=== PATIENT | female | born 1970 | race Caucasian/White ===

== ENCOUNTER 2017-06-30 11:26 | Emergency (ER) | payer BC ==
[2017-06-30 11:35] VITALS: TEMP 97.7
[2017-06-30] MEDS ORDERED: KETOROLAC 60 MG/2 ML VIAL IM STA (12:19)
--- NOTE | 2017-06-30 12:20 | ED ---
General Adult HPI - General Chief complaint: Extremity Injury, Upper Stated complaint: LEFT SHOULDER PAIN, HAND SWELLING Time Seen by Provider: 06/30/17 11:30 Source: patient, RN notes reviewed Mode of arrival: ambulatory Limitations: no limitations - History of Present Illness Initial comments: This is a 46-year-old female presents emergency Department complaining of left shoulder pain. Patient states his been ongoing for about a month. Patient states anytime she abducts her shoulder increases the pain. Patient states also asked or rotation appears to increase the pain. Patient states she's been doing quite a bit of moving and lifting at work and she thinks this may have exacerbated the shoulder. Patient denies any blunt or direct trauma to the shoulder. Patient denies any elbow wrist or hand pain. Patient denies any swelling or redness. Patient denies any tingling or numbness - Related Data Home Medications Medication Instructions Recorded Confirmed Propranolol LA [Inderal LA] 60 mg PO DAILY 08/23/14 06/30/17 Lisinopril [Zestril] 2.5 mg PO DAILY 03/22/16 06/30/17 Dapagliflozin Propanediol [Farxiga] 5 mg PO DAILY 06/30/17 06/30/17 Dulaglutide [Trulicity] 1.5 mg SQ TH 06/30/17 06/30/17 Previous Rx's Medication Instructions Recorded Ibuprofen [Motrin] 600 mg PO Q6HR PRN #20 tab 06/30/17 Allergies Allergy/AdvReac Type Severity Reaction Status Date / Time metformin AdvReac Diarrhea Verified 06/30/17 12:02 Review of Systems ROS Statement: Those systems with pertinent positive or pertinent negative responses have been documented in the HPI. ROS Other: All systems not noted in ROS Statement are negative. Past Medical History Past Medical History: Diabetes Mellitus, Hypertension History of Any Multi-Drug Resistant Organisms: None Reported Past Surgical History: No Surgical Hx Reported Past Psychological History: No Psychological Hx Reported Smoking Status: Never smoker Past Alcohol Use History: None Reported Past Drug Use History: None Reported General Exam - General Exam Comments Initial Comments: GENERAL Patient is well-developed and well-nourished. Patient is in mild distress. EYES Patient's pupils are equal and round. Extraocular motion is intact SKIN Unremarkable NEURO The patient is alert and oriented 3 PYSCH Patient has normal interpersonal interactions. MUSCULOSKELETAL Patient's full range of motion of her shoulder but it is tender laterally slightly Limitations: no limitations Course Vital Signs 06/30/17 11:32 Temperature 97.7 F Pulse Rate 86 Respiratory 16 Rate Blood Pressure 111/73 O2 Sat by Pulse 98 Oximetry Medical Decision Making - Medical Decision Making X-ray shows no acute abnormality. Disposition Clinical Impression: Left shoulder strain Disposition: HOME SELF-CARE Condition: Good Instructions: Rotator Cuff Injury (ED) Prescriptions: Ibuprofen [Motrin] 600 mg PO Q6HR PRN #20 tab PRN Reason: For pain Referrals: Ayanna Wadsworth III, MD [Primary Care Provider] - 1-2 days Time of Disposition: 12:59
--- NOTE | 2017-06-30 13:01 | XR ---
EXAMINATION TYPE: XR shoulder complete LT DATE OF EXAM: 06/30/2017 COMPARISON: NONE HISTORY: Pain TECHNIQUE: Three views are submitted. FINDINGS: The osseous structures are intact. There is no acute fracture or dislocation. There is mild arthropa thy of the AC joint.. IMPRESSION: 1. No acute process.
[2017-06-30 13:40] VITALS: BP 117/76; PULSE 76; RESP 18
== END 2017-06-30 13:20 | disposition home or self-care (01) ==
LOC: EC 11:26
DX: S46.912A Strain of unspecified muscle, fascia and tendon at shoulder and upper arm level, left arm, initial encounter (principal); E11.9 Type 2 diabetes mellitus without complications; I10 Essential (primary) hypertension; Z79.899 Other long term (current) drug therapy; Z88.8 Allergy status to other drugs, medicaments and biological substances; X50.9XXA Other and unspecified overexertion or strenuous movements or postures, initial encounter; Y92.89 Other specified places as the place of occurrence of the external cause
CPT/HCPCS: 73030; 99283; 96372; J1885

== ENCOUNTER 2018-03-09 17:26 | Emergency (ER) | payer OTHER, BC ==
[2018-03-09 17:50] VITALS: BP 123/76; PULSE 85; RESP 20; TEMP 97.7
[2018-03-09] MEDS ORDERED: CYCLOBENZAPRINE 10MG STARTER 3 TAB BTL PO STA (18:30)
[2018-03-09] MEDS ORDERED: IBUPROFEN 600 MG STARTER PACK 4 TAB BTL PO STA (18:30)
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
== END 2018-03-09 19:08 | disposition home or self-care (01) ==
LOC: EC 17:26
DX: S16.1XXA Strain of muscle, fascia and tendon at neck level, initial encounter (principal); M25.511 Pain in right shoulder; M25.512 Pain in left shoulder; E11.9 Type 2 diabetes mellitus without complications; I10 Essential (primary) hypertension; Z79.84 Long term (current) use of oral hypoglycemic drugs; Z79.899 Other long term (current) drug therapy; Z88.8 Allergy status to other drugs, medicaments and biological substances; V43.63XA Car passenger injured in collision with pick-up truck in traffic accident, initial encounter; Y92.89 Other specified places as the place of occurrence of the external cause
CPT/HCPCS: 99283

== ENCOUNTER 2018-10-06 11:24 | Emergency (ER) | payer BC ==
[2018-10-06 11:31] VITALS: BP 154/82; PULSE 94; RESP 18; TEMP 97.7
--- NOTE | 2018-10-06 11:59 | XR ---
EXAMINATION TYPE: XR knee complete LT DATE OF EXAM: 10/06/2018 COMPARISON: NONE HISTORY: Pain TECHNIQUE: Four views are submitted. FINDINGS: Mild narrowing the medial part knee. No erosive changes. Osseous structures are intact. No acute fr acture seen. Soft tissue calcification adjacent to the head of the fibula. IMPRESSION: 1. No acute fracture or dislocation. If there is concern for internal derangement of the knee correl ate with MRI.
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
== END 2018-10-06 12:25 | disposition home or self-care (01) ==
LOC: EC 11:24
DX: M25.562 Pain in left knee (principal); M79.9 Soft tissue disorder, unspecified; E11.9 Type 2 diabetes mellitus without complications; I10 Essential (primary) hypertension; Z79.84 Long term (current) use of oral hypoglycemic drugs; Z79.899 Other long term (current) drug therapy; Z88.8 Allergy status to other drugs, medicaments and biological substances; W00.0XXA Fall on same level due to ice and snow, initial encounter
CPT/HCPCS: 99283

== ENCOUNTER 2019-04-11 16:45 | Observation (INO) | payer BC ==
[2019-04-11] MEDS ORDERED: NITROGLYCERIN SL TABS 0.4 MG TAB SUBLINGUAL STA (18:45)
[2019-04-11] MEDS ORDERED: ASPIRIN 81 MG PO STA (18:45)
--- NOTE | 2019-04-11 18:53 | ED ---
Chest Pain HPI - General Chief Complaint: Chest Pain Stated Complaint: CHEST PAIN, DIZZINESS Time Seen by Provider: 04/11/19 18:37 Source: patient Mode of arrival: wheelchair Limitations: no limitations - History of Present Illness Initial Comments: Patient is a 48-year-old female presents emergency department with chief complaint of chest pain. Patient reports she initially developed dizziness 4 days ago and the following day she developed left-sided chest pain with gradual onset. Patient reports the pain is nonexertional but it is reproducible with palpation. Patient reports the pain does not radiate anywhere. Patient has any headaches or lightheadedness or diaphoresis. Patient denies shortness of breath but does report chest tightness. Patient does have a family history of cardiovascular disease. Patient does have hypertension and hypercholesterolemia which are both controlled with medication. Patient denies any nausea or vomiting. Patient denies any abdominal or back pain. She denies taking medication to alleviate the symptoms. Patient denies any alleviating or aggravating factors. Patient denies recent periods of prolonged activity, exogenous estrogen use, chemotherapy. - Related Data Home Medications Medication Instructions Recorded Confirmed Lisinopril [Zestril] 2.5 mg PO DAILY 03/22/16 04/11/19 Dapagliflozin Propanediol [Farxiga] 5 mg PO DAILY 06/30/17 04/11/19 Atorvastatin [Lipitor] 10 mg PO HS 04/11/19 04/11/19 sitaGLIPtin [Januvia] 50 mg PO DAILY 04/11/19 04/11/19 Allergies Allergy/AdvReac Type Severity Reaction Status Date / Time metformin AdvReac Diarrhea Verified 04/11/19 19:36 Review of Systems ROS Statement: Those systems with pertinent positive or pertinent negative responses have been documented in the HPI. ROS Other: All systems not noted in ROS Statement are negative. EKG Findings - EKG Comments: EKG Findings:: Machine interpretation : Normal sinus rhythm, minimal voltage criteria for LVH,. My interpretation: Normal sinus rhythm, no ST changes. Ventricular rate 83, AL interval 132, care is ration 80, QT/QTC 398/467, P-R-T axes 47 4 5 Past Medical History Past Medical History: Diabetes Mellitus, Hypertension History of Any Multi-Drug Resistant Organisms: None Reported Past Surgical History: No Surgical Hx Reported Past Psychological History: No Psychological Hx Reported Smoking Status: Never smoker Past Alcohol Use History: Occasional Past Drug Use History: None Reported General Exam Limitations: no limitations General appearance: alert, in no apparent distress Head exam: Present: atraumatic, normocephalic, normal inspection Eye exam: Present: normal appearance, PERRL, EOMI. Absent: conjunctival injection Pupils: Present: normal accommodation ENT exam: Present: normal exam, normal oropharynx, mucous membranes moist, TM's normal bilaterally, normal external ear exam Neck exam: Present: normal inspection, full ROM Respiratory exam: Present: normal lung sounds bilaterally Cardiovascular Exam: Present: regular rate, normal rhythm, normal heart sounds. Absent: systolic murmur, diastolic murmur GI/Abdominal exam: Present: soft, normal bowel sounds. Absent: tenderness, guarding Extremities exam: Present: normal inspection, full ROM, normal capillary refill, other (+2 ulnar and radial pulses bilaterally. +2 dorsalis pedis and posterior tibialis bilaterally.) Back exam: Present: normal inspection, full ROM. Absent: tenderness, CVA tenderness (R), CVA tenderness (L) Neurological exam: Present: alert, oriented X3 Psychiatric exam: Present: normal affect, normal mood Skin exam: Present: warm, intact, normal color Course Vital Signs 04/11/19 04/11/19 04/11/19 17:00 19:33 19:37 Temperature 98.1 F Pulse Rate 83 85 82 Respiratory 16 16 16 Rate Blood Pressure 117/76 121/73 117/73 O2 Sat by Pulse 97 97 94 L Oximetry Chest Pain MDM - Differential Diagnosis ACS - MDM Patient is a 48-year-old female with history of hypertension and hypercholesterolemia is presenting to emergency Department with a chief complaint of chest pain. EKG is showing no ST changes. Troponins are negative. Rest of labs are unremarkable. Patient reports the pain does not radiate to the back. Patient denies any syncope. Patient denies any shortness of breath so I have low suspicion for PE. Patient has bilaterally equal pulses. On reevaluation patient reports the pain has resolved. The patient reported a gradual onset of chest pain. His last suspect the patient to have anginal pain. Patient will be admitted for serial troponins. Admitting physician is Dr. Archer. Cardiology consulted - Wells Criteria Clinical Symptoms of DVT: (0) No No Alternative Diagnosis: (0) No Immobilization of Surgery in Previous 4 Weeks: (0) No Previous DVT/PE: (0) No Hemoptysis: (0) No Malignancy: (0) No Disposition Clinical Impression: Chest pain Disposition: ADMITTED IP TO THIS HOSP Condition: Stable Instructions (If sedation given, give patient instructions): Chest Pain (ED) Additional Instructions: Patient will be admitted Is patient prescribed a controlled substance at d/c from ED?: No Referrals: Ayanna Wadsworth III, MD [Primary Care Provider] - 1-2 days Time of Disposition: 20:47
[2019-04-11 19:14] LABS: Basophils # (A) 0.1 k/uL (0-0.2); Basophils % (A) 1 %; Eosinophils # (A) 0.4 k/uL (0-0.7); Eosinophils % (A) 4 %; HCT 42.6 % (34.0-46.0); HGB 14.4 gm/dL (11.4-16.0); Lymphocytes % (A) 30 %; MCH 29.1 pg (25.0-35.0); MCHC 33.8 g/dL (31.0-37.0); Mean Platelet Volume 6.9; Monocytes # (A) 0.4 k/uL (0-1.0); Monocytes % (A) 4 %; Neutrophils # (A) 6.1 k/uL (1.3-7.7); Neutrophils % (A) 61 %; Platelet Count 323 k/uL (150-450); RBC 4.95 m/uL (3.80-5.40); RDW 14.3 % (11.5-15.5); WBC 10.2 k/uL (3.8-10.6)
[2019-04-11 19:20] LABS: ALT 42 U/L (9-52); AST 32 U/L (14-36); African American GFR (CKD) >90 (>60 ml/min/1.73 sqM); Albumin 4.5 g/dL (3.5-5.0); Alkaline Phosphatase 66 U/L (38-126); Anion Gap 14 mmol/L; Blood Urea Nitrogen 17 mg/dL (7-17); Calcium 9.4 mg/dL (8.4-10.2); Carbon Dioxide 22 mmol/L (22-30); Chloride 102 mmol/L (98-107); Glucose 142 mg/dL (74-99); Magnesium 1.7 mg/dL (1.6-2.3); Potassium 3.5 mmol/L (3.5-5.1); Sodium 138 mmol/L (137-145); Total Bilirubin 0.3 mg/dL (0.2-1.3); Total Protein 7.8 g/dL (6.3-8.2)
[2019-04-11 19:30] LABS: INR 0.9 (<1.2); Partial Thromboplastin Time 22.6 sec (22.0-30.0); Prothrombin Time 9.4 sec (9.0-12.0)
--- NOTE | 2019-04-11 20:22 | XR ---
EXAMINATION: XR chest 2V DATE AND TIME: 04/11/2019 7:44 PM CLINICAL INDICATION: PHH; Chest Pain TECHNIQUE: Departmental protocol COMPARISON: 01/04/2015 FINDINGS: The lungs are clear. The pleural spaces are negative. The cardiac silhouette is not enlarged. The remainder of the mediastinal silhouette is unremarkable. The skeletal structures and soft tissues are negative for acute findings. IMPRESSION: NO ACUTE PROCESS.
[2019-04-11] MEDS ORDERED: ACETAMINOPHEN TAB 325 MG TAB PO PRN (20:40)
[2019-04-11] MEDS ORDERED: NALOXONE 0.4 MG/ML 1 ML VIAL IV PRN (20:40)
[2019-04-11] MEDS ORDERED: traMADol 50 MG TAB PO PRN (20:40)
[2019-04-11] MEDS ORDERED: IBUPROFEN 400 MG TAB PO PRN (20:40)
[2019-04-12 06:42] LABS: Glucose,Whole Blood 175 mg/dL (75-99)
[2019-04-12 08:37] VITALS: RESP 17
[2019-04-12] MEDS ORDERED: MECLIZINE 25 MG TAB PO SCH (09:00)
[2019-04-12] MEDS ORDERED: DOBUTamine DRIP for NUC MED 500 MG in DEXTROSE/WATER 1 250ML.BAG IV ONE (09:06)
[2019-04-12 10:19] LABS: Cholesterol 220 mg/dL (<200); HDL Cholesterol 35 mg/dL (40-60); LDL Cholesterol,Calculated 130 mg/dL (0-99); Triglycerides 273 mg/dL (<150)
--- NOTE | 2019-04-12 10:31 | ECHOF ---
Referral Reason:dizziness, cp MEASUREMENTS -------- HEIGHT: 147.3 cm WEIGHT: 56.2 kg BP: 89/49 RVIDd: 2.9 cm (< 3.3) IVSd: 0.8 cm (0.6 - 1.1) LVIDd: 3.4 cm (3.9 - 5.3) LVPWd: 0.9 cm (0.6 - 1.1) IVSs: 1.3 cm LVIDs: 1.8 cm LVPWs: 1.3 cm LA Diam: 2.4 cm (2.7 - 3.8) Ao Diam: 2.5 cm (2.0 - 3.7) AV Cusp: 1.6 cm (1.5 - 2.6) MV EXCURSION: 13.796 mm (> 18.000) MV EF SLOPE: 108 mm/s (70 - 150) EPSS: 0.5 cm MV E Layton: 0.99 m/s MV DecT: 254 ms MV A Layton: 0.80 m/s MV E/A Ratio: 1.23 RAP: 5.00 mmHg RVSP: 28.48 mmHg FINDINGS -------- Sinus rhythm. This was a technically adequate study. The left ventricular size is normal. Left ventricular wall thickness is normal. Overall left vent ricular systolic function is normal with, an EF between 60 - 65 %. The right ventricle is normal in size. The left atrial size is normal. The right atrium is normal in size. Interatrial and interventricular septum intact. The aortic valve is trileaflet and appears structurally normal. There is trace to mild mitral regurgitation. Mild tricuspid regurgitation present. Right ventricular systolic pressure is normal at < 35 mmHg. The pulmonic valve was not well visualized. The aortic root size is normal. Normal inferior vena cava with normal inspiratory collapse consistent with estimated right atrial pre ssure of 5 mmHg. There is no pericardial effusion. CONCLUSIONS -------- 1. Sinus rhythm. 2. This was a technically adequate study. 3. The left ventricular size is normal. 4. Left ventricular wall thickness is normal. 5. Overall left ventricular systolic function is normal with, an EF between 60 - 65 %. 6. The right ventricle is normal in size. 7. The left atrial size is normal. 8. The right atrium is normal in size. 9. Interatrial and interventricular septum intact. 10. The aortic valve is trileaflet and appears structurally normal. 11. There is trace to mild mitral regurgitation. 12. Mild tricuspid regurgitation present. 13. Right ventricular systolic pressure is normal at < 35 mmHg. 14. The pulmonic valve was not well visualized. 15. The aortic root size is normal. 16. Normal inferior vena cava with normal inspiratory collapse consistent with estimated right atrial pressure of 5 mmHg. 17. There is no pericardial effusion. UI DEVELOPER: Brenda Caceres RDCS
[2019-04-12] MEDS ORDERED: LISINOPRIL 2.5 MG TAB PO SCH (11:45)
[2019-04-12 11:51] LABS: Glucose,Whole Blood 166 mg/dL (75-99)
--- NOTE | 2019-04-12 11:58 | ECHOS ---
STRESS ECHOCARDIOGRAM INDICATIONS: Chest pain BASELINE HEART RATE: 72 BASELINE BLOOD PRESSURE: 102/48 MAXIMUM HEART RATE: 148 MAXIMUM BLOOD PRESSURE: 195/51 85% MPHR: 145 100% MPHR: 170 MAXIMUM STAGE REACHED: 4 TOTAL EXERCISE TIME: 11:40 CLINICAL INFORMATION: Baseline EKG shows sinus rhythm, normal axis, normal intervals. The patient was given intravenous dobutamine over a period of 11.5 minutes achieving 87% of predicted maximal heart rate without chest pain or diagnostic ST-segment depression. Baseline echo shows normal left ventricular size wall motion systolic function. Post dobutamine infusion, there is normal hyperdynamic response of all segments of myocardium noted. CONCLUSION: 1. Negative stress test by EKG criteria. 2. Negative dobutamine echo. MMODL / IJN: [id number] /
[2019-04-12 12:19] VITALS: BP 119/78; PULSE 87; TEMP 97.9
--- NOTE | 2019-04-12 12:26 | P.HPIM ---
History of Present Illness 48-year-old up as an female came in was a stable environment compensative chest pain on the left side of the chest that'll onset lasted for about 4 days on and off last for a few hours nonexertional not reproducible and palpate palpation, and nonpleuritic not associated with food denied any lightheadedness or diaphoresis denied any shortness of breath. Patient's chest pain is moderate and dull pain. Patient also company of dizziness mostly vertigo. 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 Patient to dizziness worsens with head movement lasted for a few minutes to hours on and off. Did perform Montrell- Hallspike maneuver which is positive for benign push vertig . With partial improvement in symptoms Review of Systems REVIEW OF SYSTEMS: CONSTITUTIONAL: No fever, no malaise, no fatigue. HEENT: No recent visual problems or hearing problems. Denied any sore throat. CARDIOVASCULAR: No orthopnea, PND, no palpitations, no syncope. PULMONARY: No shortness of breath, no cough, no hemoptysis. GASTROINTESTINAL: No diarrhea, no nausea, no vomiting, no abdominal pain. NEUROLOGICAL: No headaches, no weakness, no numbness. HEMATOLOGICAL: Denies any bleeding or petechiae. GENITOURINARY: Denies any burning micturition, frequency, or urgency. MUSCULOSKELETAL/RHEUMATOLOGICAL: Denies any joint pain, swelling, or any muscle pain. ENDOCRINE: Denies any polyuria or polydipsia. The rest of the 14-point review of systems is negative. Past Medical History Past Medical History: Diabetes Mellitus, Hyperlipidemia, Hypertension History of Any Multi-Drug Resistant Organisms: None Reported Past Surgical History: No Surgical Hx Reported Past Anesthesia/Blood Transfusion Reactions: No Reported Reaction Past Psychological History: No Psychological Hx Reported Smoking Status: Never smoker Past Alcohol Use History: Occasional Past Drug Use History: None Reported - Past Family History Mother Family Medical History: Coronary Artery Disease (CAD) Father Family Medical History: Coronary Artery Disease (CAD), CVA/TIA, Myocardial Infarction ([place]) Medications and Allergies Home Medications Medication Instructions Recorded Confirmed Type Dapagliflozin Propanediol [Farxiga] 5 mg PO DAILY 06/30/17 04/11/19 History Atorvastatin [Lipitor] 10 mg PO HS 04/11/19 04/11/19 History sitaGLIPtin [Januvia] 50 mg PO DAILY 04/11/19 04/11/19 History Atorvastatin Calcium [Lipitor] 20 mg PO HS #30 tab 04/12/19 Rx Lisinopril [Zestril] 2.5 mg PO DAILY tab 04/12/19 Rx Meclizine [Antivert] 25 mg PO TID PRN #30 tab 04/12/19 Rx Allergies Allergy/AdvReac Type Severity Reaction Status Date / Time metformin AdvReac Diarrhea Verified 04/11/19 19:36 Physical Exam Vitals: Vital Signs Temp Pulse Pulse Resp BP BP Pulse Ox 04/12/19 12:00 97.9 F 87 17 119/78 98 04/12/19 08:00 98 F 68 17 108/68 98 04/12/19 02:46 81 18 04/12/19 02:44 98.0 F 81 18 89/49 98 04/12/19 00:00 98.1 F 81 18 110/66 93 L 04/11/19 22:00 98.0 F 77 18 116/75 98 04/11/19 21:27 80 16 118/78 99 04/11/19 19:37 82 16 117/73 94 L 04/11/19 19:33 85 16 121/73 97 04/11/19 17:00 98.1 F 83 16 117/76 97 Intake and Output 04/11/19 04/12/19 04/12/19 22:59 06:59 14:59 Intake Total 400 Balance 400 Intake: Oral 400 Other: Voiding Method Toilet # Voids 1 Weight 56.245 kg 56.245 kg PHYSICAL EXAMINATION: GENERAL: The patient is alert and oriented x3, not in any acute distress. Well developed, well nourished. HEENT: Pupils are round and equally reacting to light. EOMI. No scleral icterus. No conjunctival pallor. Normocephalic, atraumatic. No pharyngeal erythema. No thyromegaly. CARDIOVASCULAR: S1 and S2 present. No murmurs, rubs, or gallops. PULMONARY: Chest is clear to auscultation, no wheezing or crackles. ABDOMEN: Soft, nontender, nondistended, normoactive bowel sounds. No palpable organomegaly. MUSCULOSKELETAL: No joint swelling or deformity. EXTREMITIES: No cyanosis, clubbing, or pedal edema. NEUROLOGICAL: Gross neurological examination did not reveal any focal deficits. SKIN: No rashes. Results CBC & Chem 7: 04/11/19 19:01 04/11/19 19:01 Labs: Abnormal Lab Results - Last 24 Hours (Table) 04/11/19 04/12/19 04/12/19 Range/Units 19:01 06:40 08:37 Creatinine 0.51 L (0.52-1.04) mg/dL Glucose 142 H (74-99) mg/dL POC Glucose (mg/dL) 175 H (75-99) mg/dL Triglycerides 273 H (<150) mg/dL Cholesterol 220 H (<200) mg/dL LDL Cholesterol, Calc 130 H (0-99) mg/dL HDL Cholesterol 35 L (40-60) mg/dL 04/12/19 Range/Units 11:50 Creatinine (0.52-1.04) mg/dL Glucose (74-99) mg/dL POC Glucose (mg/dL) 166 H (75-99) mg/dL Triglycerides (<150) mg/dL Cholesterol (<200) mg/dL LDL Cholesterol, Calc (0-99) mg/dL HDL Cholesterol (40-60) mg/dL Thrombosis Risk Factor Assmnt - Choose All That Apply Any of the Below Risk Factors Present?: Yes Each Factor Represents 1 point: Acute NM, Age 41-60 years, Obesity (BMI >25) Other Risk Factors: No Other congenital or acquired thrombophilia - If yes, enter type in comment: No Thrombosis Risk Factor Assessment Total Risk Factor Score: 3 Thrombosis Risk Factor Assessment Level: Moderate Risk Assessment and Plan Plan: -Chest pain: Atypical: Rule out acute cardiac syndromes patient will undergo stress test if that's negative patient will be discharged. -Vertigo: Appears to be benign push vertigo be discharged on meclizine and if her symptoms doesn't resolve patient will need further workup with MRI although patient appears to have peripheral vertigo from BPPV. -Type 2 diabetes mellitus: Patient will be continued on her home regimen #Hypertension: Patient is hypotensive with systolics going down to as low as 90 because of which I'm discontinuing lisinopril although bili lisinopril is being used for nephro protective purposes and type 2 diabetes mellitus. Down the line if patient can tolerate can be restarted back on lisinopril patient is on a very low-dose at this time. -Hyperlipidemia patient will be discharged on statin dietary counseling will be provided.
--- NOTE | 2019-04-12 12:27 | P.DS ---
Providers Date of admission: 04/11/19 20:34 Attending physician: Ashley Archer Consults: 04/11/19 20:40 Consult Physician Stat Consulting Provider: Kodi Olvera Consult Reason/Comments: Chest pain Do you want consulting provider notified?: Yes Primary care physician: Ayanna Wadsworth [place] Course: Please refer to my HPI Patient Condition at Discharge: Stable Plan - Discharge Summary Discharge Rx Participant: No New Discharge Prescriptions: New Meclizine [Antivert] 25 mg PO TID PRN #30 tab PRN Reason: Vomiting Atorvastatin Calcium [Lipitor] 20 mg PO HS #30 tab Lisinopril [Zestril] 2.5 mg PO DAILY tab Discontinued Lisinopril [Zestril] 2.5 mg PO DAILY No Action Dapagliflozin Propanediol [Farxiga] 5 mg PO DAILY sitaGLIPtin [Januvia] 50 mg PO DAILY Atorvastatin [Lipitor] 10 mg PO HS Discharge Medication List Dapagliflozin Propanediol [Farxiga] 5 mg PO DAILY 06/30/17 [History] Atorvastatin [Lipitor] 10 mg PO HS 04/11/19 [History] sitaGLIPtin [Januvia] 50 mg PO DAILY 04/11/19 [History] Atorvastatin Calcium [Lipitor] 20 mg PO HS #30 tab 04/12/19 [Rx] Lisinopril [Zestril] 2.5 mg PO DAILY tab 04/12/19 [Rx] Meclizine [Antivert] 25 mg PO TID PRN #30 tab 04/12/19 [Rx] Follow up Appointment(s)/Referral(s): Ayanna Wadsworth III, MD [Primary Care Provider] - 1-2 days Joseph Trevino MD [STAFF PHYSICIAN] - 04/27/19 3:45 pm Patient Instructions/Handouts: Chest Pain (ED) Discharge Disposition: HOME SELF-CARE
--- NOTE | 2019-04-12 13:24 | P.CRDCN ---
History of Present Illness History of present illness: This is a pleasant 48-year-old female past medical history significant for hypertension, dyslipidemia and diabetes mellitus. She denies history of coronary artery disease and does not follow with a hull and deck remover for any reason. We have been asked to see her in consultation for chest pain. She states for the past 2-3 days every time she lays down she feels like the room is spinning. When she stands up the symptoms improve but don't entirely subside. This has been intermittent and getting progressively worse. She also has noted a discomfort in the left shoulder associated with these symptoms. The pain is described as a sore achy sensation. She works as a food checkers and cashiers supervisor and initially was thinking this was a musckuloskeletal strain related to her repetitive movement of her arm. However combined with the dizziness she decided to come to the hospital. She is seen and examined laying flat in bed in no acute distress. She continues to feel dizzy and also has a sore feeling in her anterior left shoulder. She denies any associated shortness of breath, nausea, vomiting, palpitations or diaphoresis. EKG reveals sinus mechanism with no acute ST changes. Chest xray is negative for an acute cardiopulmonary process. Laboratory data reviewed, CBC unremarkable, sodium 138, potassium 3.5, creatinine 0.51, magnesium 1.7, cardiac enzymes negative 3, LDL 130. Current cardiac medications include atorvastatin 10 mg daily and lisinopril 2.5 mg daily. At the time of my exam: CONSTITUTIONAL: Denies fever. Denies chills. EYES: Denies blurred vision. Denies vision changes. Denies eye pain. EARS, NOSE, MOUTH & THROAT: Denies headache. Denies sore throat. Denies ear pain. CARDIOVASCULAR: Denies chest pain. Denies shortness of breath. Denies orthopnea. Denies PND. Denies palpitations. RESPIRATORY: Denies cough. GASTROINTESTINAL: Denies abdominal pain. Denies diarrhea. Denies constipation. Denies nausea. Denies vomiting. MUSCULOSKELETAL: Denies myalgias. INTEGUMENTARY: Denies pruitis. Denies rash. NEUROLOGIC: Denies numbness. Denies tingling. Denies weakness. Complains of dizziness like room is spinning. PSYCHIATRIC: Denies anxiety. Denies depression. ENDOCRINE: Denies fatigue. Denies weight change. Denies polydipsia. Denies polyurina. GENITOURINARY: Denies burning, hematuria or urgency with micturation. HEMATOLOGIC: Denies history of anemia. Denies bleeding. Blood pressure 119/78 heart rate 87 afebrile and maintaining oxygen saturation on room air GENERAL: This is a 48-year-old female in no apparent distress at the time of my examination. HEENT: Head is atraumatic, normocephalic. Pupils are equal, round. Sclerae anicteric. Conjunctivae are clear. Mucous membranes of the mouth are moist. Neck is supple. There is no jugular venous distention. No carotid bruit is heard. LUNGS: Clear to auscultation no wheezes, rales or rhonchi. No chest wall tenderness is noted on palpation or with deep breathing. HEART: Regular rate and rhythm without murmurs, rubs or gallops. S1 and S2 heard. ABDOMEN: Soft, nontender. Bowel sounds are heard. No organomegaly noted. EXTREMITIES: No evidence of peripheral edema and no calf tenderness noted. VASCULAR: Radial and dorsalis pedis pulses palpated, no evidence of clubbing. NEUROLOGIC: Patient is awake, alert and oriented x3. ASSESSMENT Chest pain, atypical. An acute coronary event has been ruled out. Diabetes mellitus Hypertension Dyslipidemia, uncontrolled on current dose of atorvastatin PLAN An acute coronary event has been ruled out. Initiate on antivert 25 mg daily and assess for improvement in dizziness. Obtain 2D echocardiogram and doppler study to assess cardiac structure and function. Perform doutamine stress echo to assess for stress induced ischemia. Recommend lifestyle modifications in the form of diet and exercise for improvement of LDL cholesterol and will increase atorvastatin. If testing is normal she may be discharged from a cardiac perspective. Follow up with Dr. Trevino in 2 weeks. Thank you kindly for this consultation. Nurse Practitioner note has been reviewed, I agree with a documented findings and plan of care. Patient was seen and examined. Past Medical History Past Medical History: Diabetes Mellitus, Hyperlipidemia, Hypertension History of Any Multi-Drug Resistant Organisms: None Reported Past Surgical History: No Surgical Hx Reported Past Anesthesia/Blood Transfusion Reactions: No Reported Reaction Past Psychological History: No Psychological Hx Reported Smoking Status: Never smoker Past Alcohol Use History: Occasional Past Drug Use History: None Reported - Past Family History Mother Family Medical History: Coronary Artery Disease (CAD) Father Family Medical History: Coronary Artery Disease (CAD), CVA/TIA, Myocardial Infarction ([place]) Medications and Allergies Home Medications Medication Instructions Recorded Confirmed Type Dapagliflozin Propanediol [Farxiga] 5 mg PO DAILY 06/30/17 04/11/19 History Atorvastatin [Lipitor] 10 mg PO HS 04/11/19 04/11/19 History sitaGLIPtin [Januvia] 50 mg PO DAILY 04/11/19 04/11/19 History Atorvastatin Calcium [Lipitor] 20 mg PO HS #30 tab 04/12/19 Rx Lisinopril [Zestril] 2.5 mg PO DAILY tab 04/12/19 Rx Meclizine [Antivert] 25 mg PO TID PRN #30 tab 04/12/19 Rx Allergies Allergy/AdvReac Type Severity Reaction Status Date / Time metformin AdvReac Diarrhea Verified 04/11/19 19:36 Physical Exam Vitals: Vital Signs Temp Pulse Pulse Resp BP BP Pulse Ox 04/12/19 02:46 81 18 04/12/19 02:44 98.0 F 81 18 89/49 98 04/12/19 00:00 98.1 F 81 18 110/66 93 L 04/11/19 22:00 98.0 F 77 18 116/75 98 04/11/19 21:27 80 16 118/78 99 04/11/19 19:37 82 16 117/73 94 L 04/11/19 19:33 85 16 121/73 97 04/11/19 17:00 98.1 F 83 16 117/76 97 Intake and Output 04/11/19 04/12/19 04/12/19 22:59 06:59 14:59 Intake Total 400 Balance 400 Intake: Oral 400 Other: # Voids 1 Weight 56.245 kg Results 04/11/19 19:01 04/11/19 19:01 Cardiac Enzymes 04/11/19 04/11/19 04/12/19 Range/Units 19:01 19:01 00:38 AST 32 (14-36) U/L Troponin I <0.012 <0.012 (0.000-0.034) ng/mL Coagulation 04/11/19 Range/Units 19:01 PT 9.4 (9.0-12.0) sec APTT 22.6 (22.0-30.0) sec CBC 04/11/19 Range/Units 19:01 WBC 10.2 (3.8-10.6) k/uL RBC 4.95 (3.80-5.40) m/uL Hgb 14.4 (11.4-16.0) gm/dL Hct 42.6 (34.0-46.0) % Plt Count 323 (150-450) k/uL Comprehensive Metabolic Panel 04/11/19 Range/Units 19:01 Sodium 138 (137-145) mmol/L Potassium 3.5 (3.5-5.1) mmol/L Chloride 102 (98-107) mmol/L Carbon Dioxide 22 (22-30) mmol/L BUN 17 (7-17) mg/dL Creatinine 0.51 L (0.52-1.04) mg/dL Glucose 142 H (74-99) mg/dL Calcium 9.4 (8.4-10.2) mg/dL AST 32 (14-36) U/L ALT 42 (9-52) U/L Alkaline Phosphatase 66 (38-126) U/L Total Protein 7.8 (6.3-8.2) g/dL Albumin 4.5 (3.5-5.0) g/dL Current Medications Generic Name Dose Route Start Last Admin Trade Name Freq PRN Reason Stop Dose Admin Acetaminophen 650 mg 04/11/19 20:40 Tylenol Tab PO Q6HR PRN Mild Pain or Fever > 100.5 Ibuprofen 400 mg 04/11/19 20:40 Motrin PO Q6HR PRN Mild Pain or Fever > 100.5 Naloxone HCl 0.2 mg 04/11/19 20:40 Narcan IV Q2M PRN Opioid Reversal Tramadol HCl 50 mg 04/11/19 20:40 Ultram PO Q6H PRN Moderate Pain Intake and Output 04/11/19 04/12/19 04/12/19 22:59 06:59 14:59 Intake Total 400 Balance 400 Intake: Oral 400 Other: # Voids 1 Weight 56.245 kg 04/11/19 19:01 04/11/19 19:01
== END 2019-04-12 13:15 | disposition home or self-care (01) ==
LOC: EC 16:45 → 1SOBS 20:34
PROVIDERS: ADMIT Hospitalist; ATTEND Hospitalist
DX: R07.89 Other chest pain (principal); R42 Dizziness and giddiness; M25.512 Pain in left shoulder; H91.92 Unspecified hearing loss, left ear; E11.9 Type 2 diabetes mellitus without complications; E78.5 Hyperlipidemia, unspecified; I10 Essential (primary) hypertension; E78.00 Pure hypercholesterolemia, unspecified; I95.9 Hypotension, unspecified; I25.2 Old myocardial infarction; E66.9 Obesity, unspecified; Z68.25 Body mass index [BMI] 25.0-25.9, adult; Z79.84 Long term (current) use of oral hypoglycemic drugs; Z79.899 Other long term (current) drug therapy; Z88.8 Allergy status to other drugs, medicaments and biological substances; Z82.49 Family history of ischemic heart disease and other diseases of the circulatory system; Z82.3 Family history of stroke
CPT/HCPCS: 99285; 36415; 93005; 93306; 93351; 80061; 80053; 83735; 84484 ×2; 85025; 85610; 85730; 71046; G0378 ×2; J1250

== ENCOUNTER 2019-07-14 16:25 | Emergency (ER) | payer BC ==
[2019-07-14 16:28] VITALS: BP 144/71; PULSE 120; RESP 18; TEMP 97.7
--- NOTE | 2019-07-14 16:53 | XR ---
EXAMINATION TYPE: XR chest 2V DATE OF EXAM: 07/14/2019 COMPARISON: 04/11/2019 HISTORY: Cough and congestion TECHNIQUE: Frontal and lateral views of the chest are obtained. FINDINGS: Heart and mediastinum are normal. Lungs are clear. Diaphragm is normal. Bony thorax appear s normal. IMPRESSION: Normal chest. No change.
[2019-07-14] MEDS ORDERED: DEXAMETHASONE SOD PHOSPHATE 10 MG/ML 1 ML VIAL IM STA (17:01)
[2019-07-14] MEDS ORDERED: FAMOTIDINE 20 MG TAB PO STA (17:05)
[2019-07-14] MEDS ORDERED: predniSONE 20 MG TAB PO STA (17:05)
--- NOTE | 2019-07-14 17:10 | ED ---
General Adult HPI - General Chief complaint: Upper Respiratory Infection Stated complaint: Cough/congestion Time Seen by Provider: 07/14/19 16:30 Source: patient Mode of arrival: ambulatory Limitations: no limitations - History of Present Illness Initial comments: Patient is a 48-year-old female presenting to emergency Department with chief complaint of sinus congestion, sore throat and a hoarse voice. Patient reports initially she developed clear bilateral rhinorrhea about 5 days ago. She states over the last several days she developed gradual increasing hoarseness along with a nonproductive cough. Patient denies any night sweats fevers or chills. Patient denies taking medication to alleviate the symptoms. Patient is not a smoker nor has a history of asthma. Patient denies dysphagia, shortness of breath, wheezing or any chest pain. Patient does report one episode of posttussive emesis. Patient denies otalgia or headache. Patient denies any abdominal pain, back pain, nausea. - Related Data Home Medications Medication Instructions Recorded Confirmed Dapagliflozin Propanediol [Farxiga] 5 mg PO DAILY 06/30/17 04/11/19 Atorvastatin [Lipitor] 10 mg PO HS 04/11/19 04/11/19 sitaGLIPtin [Januvia] 50 mg PO DAILY 04/11/19 04/11/19 Previous Rx's Medication Instructions Recorded Atorvastatin Calcium [Lipitor] 20 mg PO HS #30 tab 04/12/19 Lisinopril [Zestril] 2.5 mg PO DAILY tab 04/12/19 Meclizine [Antivert] 25 mg PO TID PRN #30 tab 04/12/19 Benzonatate [Tessalon Perles] 100 mg PO TID PRN #15 capsule 07/14/19 methylPREDNISolone [Medrol Dose 4 mg PO DIRECTED #1 pack 07/14/19 Pack] Allergies Allergy/AdvReac Type Severity Reaction Status Date / Time metformin AdvReac Diarrhea Verified 07/14/19 16:28 Review of Systems ROS Statement: Those systems with pertinent positive or pertinent negative responses have been documented in the HPI. ROS Other: All systems not noted in ROS Statement are negative. Past Medical History Past Medical History: Diabetes Mellitus, Hyperlipidemia, Hypertension History of Any Multi-Drug Resistant Organisms: None Reported Past Surgical History: No Surgical Hx Reported Past Anesthesia/Blood Transfusion Reactions: No Reported Reaction Past Psychological History: No Psychological Hx Reported Smoking Status: Never smoker Past Alcohol Use History: Occasional Past Drug Use History: None Reported - Past Family History Mother Family Medical History: Coronary Artery Disease (CAD) Father Family Medical History: Coronary Artery Disease (CAD), CVA/TIA, Myocardial Infarction ([place]) General Exam Limitations: no limitations General appearance: alert, in no apparent distress Head exam: Present: atraumatic, normocephalic, normal inspection Eye exam: Present: normal appearance, PERRL, EOMI Pupils: Present: normal accommodation ENT exam: Present: normal exam, normal oropharynx (Uvula midline, no tonsillar enlargement, no signs of peritonsillar abscess), mucous membranes moist, TM's normal bilaterally, normal external ear exam Neck exam: Present: normal inspection, full ROM. Absent: lymphadenopathy Respiratory exam: Present: normal lung sounds bilaterally Cardiovascular Exam: Present: regular rate, normal rhythm, normal heart sounds Extremities exam: Present: normal inspection, full ROM Back exam: Present: normal inspection, full ROM Neurological exam: Present: alert, oriented X3 Psychiatric exam: Present: normal affect, normal mood Skin exam: Present: warm, dry, intact, normal color Course Vital Signs 07/14/19 16:26 Temperature 97.7 F Pulse Rate 120 H Respiratory 18 Rate Blood Pressure 144/71 O2 Sat by Pulse 100 Oximetry Medical Decision Making - Medical Decision Making Patient is a 48-year-old female presenting to the emergency department with chief complaint of sore throat, sinus congestion and a hoarse voice. Physical exam is only indicative of mild tonsillar erythema with no enlargement, exudates or signs of peritonsillar abscess. No lymph nodes. Chest x-ray is unremarkable. I suspect the patient to have laryngitis which is most likely viral. Patient given a single dose of prednisone and Pepcid here. She'll be discharged with Tessalon Perles to help with the cough. Patient advised to follow with primary care. Strict return parameters were thoroughly discussed the patient was understanding and agreeable. Case discussed with physician. Disposition Clinical Impression: Common cold, Laryngitis Disposition: HOME SELF-CARE Condition: Stable Additional Instructions: Please take prescribed medication as directed. Please follow-up with primary care. Please return to emergency department if symptoms worsen. Prescriptions: Benzonatate [Tessalon Perles] 100 mg PO TID PRN #15 capsule PRN Reason: Cough Is patient prescribed a controlled substance at d/c from ED?: No Referrals: Ayanna Wadsworth III, MD [Primary Care Provider] - 1-2 days Time of Disposition: 17:10
== END 2019-07-14 17:26 | disposition home or self-care (01) ==
LOC: EC 16:25
DX: J04.0 Acute laryngitis (principal); E78.5 Hyperlipidemia, unspecified; E11.9 Type 2 diabetes mellitus without complications; I10 Essential (primary) hypertension; Z79.84 Long term (current) use of oral hypoglycemic drugs; Z79.899 Other long term (current) drug therapy; Z88.8 Allergy status to other drugs, medicaments and biological substances; Z53.9 Procedure and treatment not carried out, unspecified reason
CPT/HCPCS: 71046; 99283

== ENCOUNTER → 2021-09-05 | Outpatient (CLI) | payer BC, OTHER ==
[~2021-09-05] MED LIST: SODIUM CHLORIDE 0.9% 50 ML IVPB ONE; SODIUM CHLORIDE 0.9% 500 ML 500 ML in EMPTY BAG 1 BAG IV PRN; SOTROVIMAB (EUA) 500 MG in SODIUM CHLORIDE 0.9% 100 ML IVPB ONE
[2021-09-05 10:52] VITALS: RESP 16; TEMP 97.8
[2021-09-05 11:55] VITALS: BP 128/82; PULSE 74
== END ==
LOC: PROCWHC3 10:39
PROVIDERS: ATTEND Family Medicine
DX: U07.1 COVID-19 (principal); E11.9 Type 2 diabetes mellitus without complications; Z88.8 Allergy status to other drugs, medicaments and biological substances
CPT/HCPCS: 96360; Q0247; M0245

== ENCOUNTER → 2022-08-03 | Outpatient (CLI) | payer OTHER ==
--- NOTE | 2022-08-03 15:44 | XR ---
EXAM TYPE: LUMBAR SPINE X RAY SERIES COMPARISON: NONE HISTORY: Low back pain TECHNIQUE: 4 views are submitted. FINDINGS: Alignment is anatomic. The pedicles are intact. The transverse processes are intact. There is mindy re degenerative disc disease L5-S1 facet arthropathy and suspected foraminal encroachment. Minimal an terolisthesis of L4 on L5 with facet arthropathy. IMPRESSION: 1. Severe degenerative disc disease and facet arthropathy L5-S1 suspected bilateral foraminal encroac hment. 2. Facet arthropathy L4-L5 with minimal anterolisthesis.
--- NOTE | 2022-08-03 15:46 | XR ---
EXAMINATION TYPE: XR Hip Bilateral and AP pelvis DATE OF EXAM: 08/03/2022 COMPARISON: NONE HISTORY: Pain TECHNIQUE: A single AP view of the pelvis is obtained. Two views of the bilateral hip are obtained. FINDINGS: There is no acute fracture/dislocation evident in the pelvis. The hip and sacroiliac join ts appear symmetric and unremarkable. There are soft tissue ossifications adjacent to the greater tro chanter of the left hip. There is mild axial narrowing of the left hip. Hypertrophic change of the ac etabulum bilaterally. On the frontal view of the left hip there is a linear lucency through the proximal shaft of the femur which is seen on only one view and appears to be associated with artifact with no definite acute fra cture. IMPRESSION: 1. Nonspecific soft tissue ossification or calcification adjacent to the left hip. This can be associ ated with trochanteric bursitis correlate clinically. 2. Degenerative changes lower lumbar spine. 3. Mild narrowing of the hip joint bilaterally with hypertrophic change of the acetabulum can be asso ciated with femoral acetabular impingement.
--- NOTE | 2022-08-03 15:48 | XR ---
EXAMINATION TYPE: XR sacroiliac joint comp BILAT DATE OF EXAM: 08/03/2022 COMPARISON: NONE HISTORY: Pain TECHNIQUE: 4 views submitted FINDINGS: SI joints are symmetric. No erosive change or sclerosis. No acute fracture or dislocation. IMPRESSION: No abnormality of the sacrum or SI joints.
== END | disposition home or self-care (01) ==
LOC: RADXRMAIN 15:20
PROVIDERS: ATTEND Family Medicine
DX: M51.26 Other intervertebral disc displacement, lumbar region (principal); M43.16 Spondylolisthesis, lumbar region; M47.816 Spondylosis without myelopathy or radiculopathy, lumbar region; M25.551 Pain in right hip; M25.552 Pain in left hip
CPT/HCPCS: 72100; 72202; 73521

== ENCOUNTER → 2022-08-03 | Outpatient (CLI) | payer OTHER ==
--- NOTE | 2022-08-04 07:17 | MM ---
Reason for Exam: Screening (asymptomatic). Last mammogram was performed 6 year(s) and 4 month(s) ago. Patient History: Menarche at age 8. Patient has no children. Paternal grandmother had breast cancer. Maternal aunt had breast cancer. Risk Values: [place] 5 year model risk: 1.4%. NCI Lifetime model risk: 10.1%. Prior Study Comparison: 11/01/2008 Bilateral Screening Mammogram, [facility]. 08/11/2013 Bilateral Screening Mammogram, [facility]. 03/20/2016 Bilateral Screening Mammogram, [facility]. Tissue Density: The breast tissue is heterogeneously dense. This may lower the sensitivity of mammography. Findings: Analyzed By CAD. There is no suspicious group of microcalcifications or new suspicious mass in either breast. No significant change from prior exam. Overall Assessment: Benign, BI-RAD 2 Management: Screening Mammogram of both breasts in 1 year. A clinical breast exam by your physician is recommended on an annual basis and results should be correlated with mammographic findings. Electronically signed and approved by: Derik Harris D.O.
== END | disposition home or self-care (01) ==
LOC: RADMAMWWP 15:48
PROVIDERS: ATTEND Family Medicine
DX: Z12.31 Encounter for screening mammogram for malignant neoplasm of breast (principal); Z80.3 Family history of malignant neoplasm of breast
CPT/HCPCS: 77063; 77067

== ENCOUNTER → 2023-03-01 | Outpatient (CLI) | payer OTHER | END | disposition home or self-care (01) | LOC: LABWHC1 13:01 | PROVIDERS: ATTEND Family Medicine | DX: E11.65 Type 2 diabetes mellitus with hyperglycemia (principal) | CPT/HCPCS: 36415; 83036 ==

== ENCOUNTER → 2023-09-14 | Outpatient (CLI) | payer OTHER ==
[2023-09-14 18:03] LABS: ALT 30 U/L (8-44); AST 18 U/L (13-35); Albumin 4.9 g/dL (3.8-4.9); Albumin/Globulin Ratio 1.81 Ratio (1.60-3.17); Alkaline Phosphatase 87 U/L (41-126); BUN/Creat Ratio 16.14 Ratio (12.00-20.00); Blood Urea Nitrogen 11.3 mg/dL (9.0-27.0); Calcium 10.7 mg/dL (8.7-10.3); Chloride 103 mmol/L (96-109); Globulin 2.7 g/dL (1.6-3.3); Glucose 169 mg/dL (70-110); Sodium 141 mmol/L (135-145); Total Bilirubin 0.3 mg/dL (0.3-1.2); Total Protein 7.6 g/dL (6.2-8.2)
== END | disposition home or self-care (01) ==
LOC: LABWHC1 12:40
PROVIDERS: ATTEND Student in an Organized Health Care Education/Training Program
DX: E55.9 Vitamin D deficiency, unspecified (principal); E11.22 Type 2 diabetes mellitus with diabetic chronic kidney disease; N18.2 Chronic kidney disease, stage 2 (mild)
CPT/HCPCS: 36415; 80053; 82306; 83036

== ENCOUNTER → 2024-10-11 | Outpatient (CLI) | payer OTHER ==
--- NOTE | 2024-10-11 13:41 | XR ---
EXAMINATION TYPE: XR shoulder complete LT DATE OF EXAM: 10/11/2024 12:41 PM COMPARISON: Left shoulder x-ray June 30, 2017 CLINICAL INDICATION: Female, 54 years old with history of M25.512 L shoulder pain, pain TECHNIQUE: Three views of the left shoulder are obtained. FINDINGS: There is no acute fracture/dislocation evident in the left shoulder. Persistent mild to m oderate narrowing and mild spurring at the acromioclavicular joint. The glenohumeral joint is preserv ed. There is new 5 mm ossific density lateral aspect of the humeral head could reflect a focal calcif ic tendinosis of the rotator cuff. The visualized ribs are intact and unremarkable. IMPRESSION: As above. [facility], , 10/11/2024 1:39 PM
== END | disposition home or self-care (01) ==
LOC: RADXRMAIN 12:29
PROVIDERS: ATTEND Family Medicine
DX: M24.812 Other specific joint derangements of left shoulder, not elsewhere classified (principal)

== ENCOUNTER → 2024-10-12 | Outpatient (CLI) | payer OTHER ==
--- NOTE | 2024-10-12 14:19 | MM ---
Reason for Exam: Screening (asymptomatic). Last mammogram was performed 2 year(s) and 2 month(s) ago. Patient History: Menarche at age 8. Patient has no children. Paternal grandmother had breast cancer. Maternal aunt had breast cancer. Risk Values: [place] 5 year model risk: 1.5%. NCI Lifetime model risk: 9.7%. Prior Study Comparison: 08/11/2013 Bilateral Screening Mammogram, [facility]. 03/20/2016 Bilateral Screening Mammogram, [facility]. 08/03/2022 Bilateral MG 3D screening mammo w/cad, [facility]. Tissue Density: The breasts are heterogeneously dense, which may obscure small masses. Findings: Analyzed By CAD. Right breast: There is no suspicious group of microcalcifications or new suspicious mass. Left breast: There is no suspicious group of microcalcifications or new suspicious mass. Overall Assessment: Negative, BI-RAD 1 Management: Screening Mammogram of both breasts in [address] [facility] will attempt to contact patient to return for supplemental views and ultrasound if indicated. Patient should continue monthly self-breast exams. A clinical breast exam by your physician is recommended on an annual basis. This exam should not preclude additional follow-up of suspicious palpable abnormalities. Note on [place] scores and lifetime risk: 1. A [place] score greater than 3% is considered moderate risk. If this is the case, consider specialist referral to assess eligibility for a risk reducing agent. 2. If overall lifetime risk for the development of breast cancer is 20% or higher, the patient may qualify for future screening with alternating mammogram and breast MRI. [facility], , 10/12/2024 2:16 PM. Electronically signed and approved by: Gabriel Monte DO
== END | disposition home or self-care (01) ==
LOC: RADMAMWWP 12:30
PROVIDERS: ATTEND Obstetrics & Gynecology
DX: Z12.31 Encounter for screening mammogram for malignant neoplasm of breast (principal); R92.333 Mammographic heterogeneous density, bilateral breasts; Z80.3 Family history of malignant neoplasm of breast
CPT/HCPCS: 77063; 77067

== ENCOUNTER → 2024-10-30 | Outpatient (CLI) | payer OTHER | END | disposition home or self-care (01) | LOC: LABWHC1 10:41 | PROVIDERS: ATTEND Family Medicine | DX: E11.9 Type 2 diabetes mellitus without complications (principal) | CPT/HCPCS: 36415; 83036 ==